=== PATIENT | male | born 2000 | race Caucasian/White ===

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

== ENCOUNTER 2022-07-20 13:40 | Emergency (ER) | payer MEDICAID, SELFPAY ==
[2022-07-20 13:44] VITALS: BP 120/77; PULSE 62; RESP 17; TEMP 36.6; O2SAT 100; BMI 24.1
--- NOTE | 2022-07-20 14:08 | US_ITS ---
STUDY: SCROTUM ULTRASOUND REASON FOR EXAM: Male, 21 years old. Testicular pain TECHNIQUE: Ultrasound evaluation of the scrotum was performed with color Doppler and static jacob-scale imaging. With Doppler. COMPARISON: None. FINDINGS: RIGHT TESTICLE INTRATESTICULAR: There is a normal size of the right testicle. The right testicle measures 4.1 x 3.5 x 2.2 cm. There is a homogenous echotexture. There is normal arterial and normal venous vascularity. There is no demonstrated right testicular mass or cyst. EXTRATESTICULAR: The epididymis is enlarged. The epididymis head measures 0.8 x 0.9 x 0.9 cm. There is normal vascularity of the epididymis. There is a 2 mm well-defined cystic structure within the epididymis, without internal echoes, consistent with an epididymal cyst. There is a small hydrocele. There is no demonstrated varicocele. There is no demonstrated extratesticular mass or cyst. LEFT TESTICLE INTRATESTICULAR: There is a normal size of the left testicle. The left testicle measures 4.0 x 3.3 x 2.2 cm. There is a homogenous echotexture. There is normal arterial and normal venous vascularity. There is no demonstrated left testicular mass or cyst. EXTRATESTICULAR: The epididymis is enlarged. The epididymis head measures 1 x 0.8 x 0.7 cm. There is normal vascularity of the epididymis. There is a 3 mm well-defined cystic structure within the epididymis, without internal echoes, consistent with an epididymal cyst. There is a small hydrocele. There are small extratesticular veins consistent with a varicocele. There is no demonstrated extratesticular mass or cyst. US/Testicular with Arterial Flow IMPRESSION: No visualized torsion. No visualized testicular mass. Small left varicocele. Bilateral mildly prominent appearing epididymis with minimal increased vascularity suggesting possible mild epididymitis. Small bilateral hydroceles. Small benign-appearing epididymal cysts. Electronically Signed: Mile Arambula MD at 15:48 EST ,
--- NOTE | 2022-07-20 14:08 | CT_ITS ---
STUDY: CT ABDOMEN AND PELVIS WITHOUT CONTRAST REASON FOR EXAM: Male, 21 years old. Flank pain RADIATION DOSAGE (If Supplied By Facility): CTDIvol = ( 6.31 ) mGy, DLP = ( 340.77 ) mGycm TECHNIQUE: Transaxial images were obtained from the dome of the diaphragm to the symphysis pubis without oral contrast, and without intravenous contrast. Sagittal and coronal images were reconstructed. Individualized dose optimization techniques were used for this CT. COMPARISON: None. FINDINGS: The visualized lung bases are unremarkable. The visualized portions of the heart are within normal limits. Normal liver. Normal gallbladder and extrahepatic biliary system. Normal spleen. Normal pancreas. Normal bilateral adrenal glands. Normal right kidney. Normal left kidney. Normal visualized stomach. There is mild distention of the distal small bowel. There is a gassy distended appearance of the transverse colon with wall thickening suggested of the ascending colon the lack of the noncontrasted nature of this study. Image 92 series 2. Otherwise there is moderate stool in the colon. The appendix is not seen with certainty. Normal abdominal aorta. Normal inferior vena cava. There are small mesenteric lymph nodes. Normal urinary bladder. Normal visualized prostate gland. Normal abdominal wall. Normal osseous structures. CT/Abdomen/Pelvis without Cont IMPRESSION: There is abnormal thick walled appearance of the ascending colon with a gassy distended appearance of the transverse colon with mild wall thickening. There are small mesenteric lymph nodes and a small amount of free fluid within the right-sided paracolic gutter. Findings are suspicious for colitis. Recommend correlation with bowel symptoms. The appendix is not seen with certainty. It may be partially visualized in June coronal views. No visualized renal ureteral or bladder calculi or hydronephrosis. Electronically Signed: Mile Arambula MD at 15:39 EST ,
--- NOTE | 2022-07-20 14:10 | EDS_ITS ---
HPI History of Present Illness Chief Complaint: Male Pain/Injury Informant: patient Narrative Narrative: Patient is a 21-year-old male presenting with testicular pain. The pain is bilaterally. He states he woke up at 2 AM and describes as excruciating. He states that the pain has come in waves since. He also feels constipated has pressure and discomfort in suprapubic region. He has had vomiting with the pain. He did not take anything for pain prior to arrival. He tried to go to work and then came here. He states he was last screened for STDs a month ago and everything was normal. He denies any new partners since then. Patient denies difficulty urinating. Nuys any swelling or redness to his testicles. Denies any diarrhea or abnormal bowel movements however this morning he felt like he needed to go but nothing happened. He had a normal bowel movement yesterday. Denies any blood in his stool. Denies any history or family history of inflammatory bowel disease such as ulcerative colitis or Crohn's disease. No other complaints at this time. PFSH PFSH Home Medications levofloxacin 500 mg tablet 500 mg PO DAILY #10 tabs 07/20/22 [Rx Last Taken Unkn own] metronidazole 500 mg tablet 500 mg PO Q8H 10 days #30 tabs 07/20/22 [Rx Last Taken Unknown] Allergy/AdvReac Type Severity Reaction Status Date / Time No Known Allergies Allergy Verified 07/20/22 13:43 Social History Smoking Status: Current every day smoker tobacco type: e-cigarettes ROS ROS ED Constitutional Constitutional ED: Denies chills or fever(s) Eyes Eyes: Denies change in vision ENT ENT ED: Denies sore throat Cardiovascular Cardiovascular: Denies chest pain or palpitations Respiratory/Chest Respiratory/Chest: Denies cough Gastrointestinal Gastrointestinal: Reports abdominal pain, nausea and vomiting Genitourinary Genitourinary ED: Reports other Details: Testicular pain ; Denies dysuria or hematuria Musculoskeletal Musculoskeletal: Denies back pain or myalgias Integumentary Denies rash Neurologic Neurologic: Denies headache(s) or weakness Psychiatric Psychiatric: Denies anxiety Hematologic/Lymphatic Hematologic/Lymphatic: Denies easy bleeding or easy bruising EXAM Physical Exam Const Vital Signs: 07/20/22 13:44 Temperature 97.9 F Temperature Source Temporal Pulse Rate 62 Respiratory Rate 17 Blood Pressure 120/77 Blood Pressure Mean 91 Pulse Ox 100 Oxygen Delivery Method Room Air Positive well nourished and well developed General Appearance ED: well developed and NAD HEENT Reports moist mucous membranes normocephalic and atraumatic Eyes PERRL and EOMs intact bilaterally Neck supple Resp normal respiratory effort and clear to auscultation bilaterally Cardio regular rate, regular rhythm and no murmurs GI non-tender and non-distended Auscultation: normoactive bowel sounds Narrative: With flare stitcher. Circumcised, normal external genitalia. Normal cremasteric reflex bilaterally. No testicular edema or tenderness palpation on exam. No penile discharge or lesions appreciated. Extremity normal to inspection Neuro oriented x3 and moves all extremities Psych mental status grossly normal Skin Lesions: no lesions Rashes: no rashes MDM MDM MDM Narrative Medical decision making narrative: Patient is evaluated for testicular pain. He also some suprapubic abdominal discomfort. No other GI or symptoms. Pain is going on for 12 hours. Physical exam is pretty benign. He denies any abdominal tenderness but does point to suprapubic region as his area of discomfort. Lower suspicion for testicular torsion based on physical exam however will obtain an ultrasound for further evaluation of this. Differential also includes epididymitis but again lower suspicion given the physical exam. He describes a colicky pain and I question if he could have a kidney stone that is radiating into his groin. CT of the abdomen and pelvis also obtained. This is negative for kidney stones but does show some free fluid in the paracolic gutter, small mesenteric lymph nodes and thickening of the ascending colon with a gassy distention appearance of the transverse colon and mild wall thickening. There is not complete visualization of the appendix however on exam patient does not of any tenderness in his right lower quadrant. As his white blood cell count is normal of the lower suspicion for acute appendicitis with these factors. Patient denies any history of ulcerative colitis or Crohn's disease however the CT scan is concerning for possible inflammatory bowel disease. Patient will be placed on antibiotics to cover colitis as well as epididymitis. Given his age he will be treated also with a dose of IM Rocephin and urine gonorrhea chlamydia sent off. Patient is counseled on the importance of following up with GI as well as his primary care doctor. He verbalizes agreement nursing of this plan. On repeat exam patient is resting comfortably and feels well with no pain. Lab Data Attestation: I reviewed the patient's lab results. Labs: Laboratory Results - last 24 hr 07/20/22 07/20/22 07/20/22 14:15 14:15 14:38 WBC 7.1 RBC 4.78 Hgb 14.1 Hct 42.7 MCV 89.3 MCH 29.5 MCHC 33.0 RDW Std Deviation 39.8 RDW Coeff of Delores 12.1 Plt Count 247 MPV 10.2 Immature Gran % (Auto) 0.100 Neut % (Auto) 65.4 Lymph % (Auto) 21.9 Towns % (Auto) 10.2 H Eos % (Auto) 2.1 Baso % (Auto) 0.3 Absolute Neuts (auto) 4.6 Absolute Lymphs (auto) 1.55 Nucleated RBC % 0 Sodium 140 Potassium 4.3 Chloride 105 Carbon Dioxide 32.0 Anion Gap 3 L BUN 8 Creatinine 0.91 Estim Creat Clear Calc 130.57 Est GFR (MDRD) Af Amer 138 Est GFR (MDRD) Non-Af 114 BUN/Creatinine Ratio 8.8 L Glucose 116 H Calcium 9.7 Total Bilirubin 0.40 AST 13 L ALT 26 Alkaline Phosphatase 89 Total Protein 7.5 Albumin 4.5 Globulin 3.0 Albumin/Globulin Ratio 1.5 Urine Color Straw Urine Clarity Clear Urine pH 8.0 Ur Specific [place] 1.015 Urine Protein Negative Urine Glucose (UA) Normal Urine Ketones Negative Urine Occult Blood Negative Urine Nitrite Negative Urine Bilirubin Negative Urine Urobilinogen Normal Ur Leukocyte Esterase Negative Radiography Diagnostic Testing: Clinical Impression(s) from Imaging Studies Abdomen/Pelvis CT 07/20/22 14:08 IMPRESSION: There is abnormal thick walled appearance of the ascending colon with a gassy distended appearance of the transverse colon with mild wall thickening. There are small mesenteric lymph nodes and a small amount of free fluid within the right-sided paracolic gutter. Findings are suspicious for colitis. Recommend correlation with bowel symptoms. The appendix is not seen with certainty. It may be partially visualized in June coronal views. No visualized renal ureteral or bladder calculi or hydronephrosis. Electronically Signed: Mile Arambula MD at 15:39 EST , Testicular Ultrasound 07/20/22 14:08 IMPRESSION: No visualized torsion. No visualized testicular mass. Small left varicocele. Bilateral mildly prominent appearing epididymis with minimal increased vascularity suggesting possible mild epididymitis. Small bilateral hydroceles. Small benign-appearing epididymal cysts. Electronically Signed: Mile Arambula MD at 15:48 EST Reading Location ID and State: [facility] / [place] Tel , Service support , Discharge Plan Triage Chief Complaint: Male Pain/Injury ED Provider: Neda Contreras Dx/Rx/DC Orders Clinical Impression: Acute epididymitis, Colitis Instructions: ED Understanding Colitis, ED Epididymitis Prescriptions: New levofloxacin 500 mg tablet 500 mg PO DAILY Qty: 10 0RF metronidazole 500 mg tablet 500 mg PO Q8H 10 Days Qty: 30 0RF Primary Care Provider: Prakash Smith Referrals: Prakash Smith DO [Primary Care Provider] - FriendBennett DO [Med Staff - Active Staff] - As soon as possible Activity Restrictions/Additional Instructions: Your lab work was normal however your ultrasound showed possible early epididymitis and your CT did show some inflammation of the lower colon which could be consistent with colitis. I recommend that you follow-up with GI doctor as this colitis could be infection or an autoimmune condition such as inflammatory bowel disease. Please follow-up with your primary care doctor within 1 week. Return if you have worsening symptoms. In the meantime alter liborio ibuprofen and Tylenol for pain. Recommend wearing tight underwear for testicular support which should help with your pain. Disposition Disposition: Home, Self Care
[2022-07-20 14:28] LABS: Absolute Lymphocyte Count 1.55 X10^3/uL (0.83-4.51); Absolute Neutrophil Count 4.6 X10^3/uL (2.0-7.7); Basophil# 0.02 X10^3/uL; Basophil% 0.3 % (0-1); Eosinophil# 0.15 X10^3/uL; Eosinophils% 2.1 % (0-5); Hematocrit 42.7 % (40-54); Hemoglobin 14.1 g/dL (13.0-16.5); Lymphocyte # 1.55 X10^3/ul (0.83-4.51); Lymphocyte % 21.9 % (19-41); Mean Corpuscular Hgb 29.5 pg (27.0-32.0); Mean Corpuscular Volume 89.3 fL (80-94); Mean Platelet Vol. 10.2 fl (6.2-12.0); Monocyte# 0.72 X10^3/uL; Monocyte% 10.2 % (0-10); NRBC Flagged by Analyzer 0 % (0-5); Neutrophil # 4.63 X10^3/uL (2.7-7.7); Neutrophil % 65.4 % (47-70); Platelet Count 247 K/mm3 (150-450); RBC Distribution Width CV 12.1 % (11.6-14.6); RBC Distribution Width SD 39.8 fl (35.1-43.9); Red Blood Count 4.78 M/mm3 (4.6-6.2); White Blood Count 7.1 K/mm3 (4.4-11.0)
[2022-07-20] MEDS: 0.9% Normal Saline 1,000 ML 999 ML IV (14:29)
[2022-07-20] MEDS: Ketorolac 15 MG/ML Vial IV (14:29)
[2022-07-20 14:41] LABS: ALB/GLOB Ratio 1.5 RATIO (0.9-2.4); AST(SGOT) 13 U/L (15-37); Alanine Aminotransfer ALT/SGPT 26 U/L (16-61); Albumin, Serum 4.5 g/dL (3.2-5.0); Alkaline Phosphatase 89 U/L (45-117); Anion Gap 3 (5-15); BUN 8 mg/dL (7-18); BUN/Creat Ratio 8.8 RATIO (10-20); Calcium,Total 9.7 mg/dL (8.5-10.1); Chloride 105 mmol/L (98-107); Creatinine, Serum 0.91 mg/dL (0.70-1.30); EST Glomerular Filtration Rate 114 mL/min (>60); Est Glom Filt Rate - Afr Amer 138 mL/min (>60); Estimated Creatinine Clearance 130.57 ml/min; Glucose 116 mg/dL (74-106); Potassium 4.3 mmol/L (3.5-5.1); Protein, Total 7.5 g/dL (6.4-8.2); Sodium Level 140 mmol/L (136-145)
[2022-07-20 14:43] LABS: Bacteria 0 SEEN /hpf (None Seen); Mucous, Urine 0 SEEN /hpf (<or=2+); Red Blood Cells-Urine 0 SEEN /hpf (0-5); Squamous Epithelial Cells - UA 0 SEEN /hpf (0-5); White Blood Cells 0 SEEN /hpf (0-5)
[2022-07-20 14:46] LABS: Color, Urine Straw (Yellow); Glucose, Dipstick Normal (Normal); Ketone-Dipstick Negative (Negative); Leukocyte Esterase-Dipstick Negative /ul (Negative); Nitrite-Dipstick Negative (Negative); Occult Blood-Urine Negative /ul (Negative); Protein-Dipstick Negative (Negative); Specific Gravity, Urine 1.015 (1.002-1.030); Urine Bilirubin Dipstick Negative (Negative); Urine Clarity Clear (Clear); Urine Urobilinogen Normal (Normal)
[2022-07-20] MEDS: Ceftriaxone 500 MG Vial IM (16:42)
[2022-07-20] MEDS: levoFLOXacin 500 MG Tablet PO (16:42)
[2022-07-20 18:07] LABS: Chlamydia Trachomatis by PCR Negative (Negative); Neisserai gonorrhoeae by PCR Negative (Negative); Probe Check PASS; Sample Adequacy Control PASS; Specimen Processing Control PASS
== END 2022-07-20 16:48 | disposition home or self-care (01) ==
PROVIDERS: Emergency Provider Emergency Medicine; PCP Student in an Organized Health Care Education/Training Program; Visit Provider Emergency Medicine
DX: K52.9 Noninfective gastroenteritis and colitis, unspecified (principal); N50.819 Testicular pain, unspecified; N45.1 Epididymitis; F17.290 Nicotine dependence, other tobacco product, uncomplicated; R10.9 Unspecified abdominal pain; R11.2 Nausea with vomiting, unspecified; Z11.3 Encounter for screening for infections with a predominantly sexual mode of transmission
CPT/HCPCS: 74176; 76870; 80053; 81001; 85025; 87491; 87591; 93976; 96361; 96372; 96374; 99284; J7030; A4216

== ENCOUNTER 2023-11-07 09:07 | Emergency (ER) | payer MEDICAID, SELFPAY ==
[2023-11-07 09:08] VITALS: BP 147/76; PULSE 78; RESP 16; TEMP 36.6; O2SAT 100; BMI 23.7
[2023-11-07] MEDS: Penicillin Vk 250 MG Tablet 500 MG PO (10:03)
--- NOTE | 2023-11-07 10:04 | EDS_ITS ---
HPI History of Present Illness Chief Complaint: Dental Informant: patient Onset/Context/Timing Onset: Today Context: Gradual Onset Timing: Continuous Current Severity: Moderate Maximum Severity: Moderate Relieved by: NSAIDs Associated Symptoms Assocated Symptom - Dental: cold sensitivity; Negative for fever, jaw swelling or face swelling Narrative Narrative: 22-year-old male no seen past medical history. Right upper front premolar has a history of being decayed. He is having severe pain since 6 AM this morning. No recent trauma. No fever. No facial swelling. Prior similar symptoms: Yes Recent Illness/Hospitalization: No PFSH PFSH Medical History Acute epididymitis Colitis Home Medications levofloxacin 500 mg tablet 500 mg PO DAILY #10 tabs 07/20/22 [Rx Last Taken Unknown] metronidazole 500 mg tablet 500 mg PO Q8H 10 days #30 tabs 07/20/22 [Rx Last Taken Unknown] penicillin V potassium 500 mg tablet 500 mg PO 4X/DAY #40 tabs 11/07/23 [Rx Last Taken Unknown] Allergy/AdvReac Type Severity Reaction Status Date / Time No Known Allergies Allergy Verified 11/07/23 09:08 Social History Smoking Status: Current every day smoker tobacco type: e-cigarettes alcohol intake: never ROS ROS ED ROS Narrative No recent illness. Review of Systems ROS Unobtainable: Denies due to encephalopathy Constitutional Constitutional ED: Denies chills or fever(s) Eyes Eyes: Denies blurry vision ENT ENT ED: Denies ear pain Cardiovascular Cardiovascular: Denies chest pain or palpitations Respiratory/Chest Respiratory/Chest: Denies cough or dyspnea Gastrointestinal Gastrointestinal: Denies abdominal pain Genitourinary Genitourinary ED: Denies dysuria or hematuria Musculoskeletal Musculoskeletal: Denies arthralgias, back pain, myalgias or neck pain Integumentary Denies abscess or Abrasions Neurologic Neurologic: Denies headache(s) Psychiatric Psychiatric: Denies anxiety or depression Endocrine Endocrinology: Denies cold intolerance, heat intolerance, polydipsia or polyphagia Hematologic/Lymphatic Hematologic/Lymphatic: Denies easy bleeding, easy bruising or lymphadenopathy Allergic/Immunologic Allergic/Immunologic ED: Denies mouth swelling, tongue swelling or urticaria EXAM Physical Exam Narrative Exam Narrative: Well-appearing 22-year-old male. Vital signs are stable and afebrile. His right upper molar second the last is decayed. Cracked. There is a large portion missing. Large cavity. He is get some gingival swelling around it. No fluctuance. No drainable abscess. Tender to palpation. He can open and close his mouth any difficulty. No tongue or posterior pharynx swelling. No floor of his mouth swelling. Neck nontender. No lymphadenopathy. Lungs clear. Heart regular rhythm no murmur. Abdomen soft nontender. Moving all 4 extremities. Awake and alert. Const Vital Signs: 11/07/23 09:08 Temperature 97.8 F Temperature Source Temporal Pulse Rate 78 Respiratory Rate 16 Blood Pressure 147/76 H Blood Pressure Mean 99 Pulse Ox 100 Oxygen Delivery Method Room Air Positive well nourished and well developed; Negative for obese, cachectic, contractures or unkempt General Appearance ED: well developed; Negative for unkempt, cachectic or contractures Nutritional Appearance: Negative for cachectic or obese HEENT HEENT Narrative: Right upper molar. Decayed. Cracked. Tender. Gingival swelling. tenderness; Negative for trauma Mouth ED: No oral and palatal mucosa normal, Yes lips normal, Yes tongue normal and Yes salivary gland normal Mouth: No oral and palatal mucosa normal, lips normal, tongue normal and salivary gland normal Teeth and Gingiva: abnormal tooth and associated gingiva Throat: posterior oropharynx normal Eyes PERRL and EOMs intact bilaterally General Eye ED: Negative for pale conjunctiva or scleral icterus Neck no lymphadenopathy, supple and no JVD General: normal visual inspection; Negative for anterior neck swelling, tenderness or submandibular swelling Lymph Lymphatic: no lymphadenopathy noted; Negative for lymphadenopathy Chest Wall inspection of chest normal and palpation of chest normal Chest: Negative for other Resp normal respiratory effort, no retractions and clear to auscultation bilaterally Effort and Inspection: Negative for other Cardio regular rate, regular rhythm, S1 normal heart sound, S2 normal heart sound and no murmurs Jugular Venous Distention: Negative for other Palpation: Negative for palpable S3 or palpable S4 Rate: Negative for bradycardia or tachycardic Rhythm: Negative for abnormal rhythm GI normal to inspection, nondistended, normoactive bowel sounds, non-tender, non- distended and no masses Inspection: Negative for other Palpation: soft Bladder / Kidney Exam: No other Back/Spine no CVA tenderness General Back: Negative for CVA tenderness Cervical Spine: Negative for other Thoracic Spine / Upper Back: Negative for thoracic spinal tenderness, paraspinal muscle tenderness or paraspinal muscle spasm Extremity normal to inspection and no joint enlargement General Extremety ED: Negative for edema General Extremity: Negative for edema Neuro oriented x3, CN's II-XII intact bilaterally, moves all extremities and no focal motor deficits Sensorium / Orientation: alert, oriented to person, oriented to place and oriented to time Gait (Neuro): normal gait Motor Exam: strength 5/5 throughout Psych mental status grossly normal Appearance: Negative for unkempt Attitude: No agitated and No other Mood & Affect: Negative for depressed or anxious Skin no rashes or lesions noted and no wounds General Skin Exam: Negative for other Image ED - URI/Dental Diagram: 1. Right upper second last premolar decayed. Large cavity. Mild gingival swelling. No palpable abscess. No fluctuance. MDM MDM MDM Narrative Medical decision making narrative: 22-year-old male with severely decayed and infected right upper molar. Started on Pen-Vee K 500 4 times daily for 10 days. Tylenol Motrin for pain. Locally anesthetized with a dental block. Discharged as a dentist and follow-up with tomorrow. Repeat exam at 10:15 AM patient's had significant relief with a dental block. He will be discharged to home. History & Record Review Discussion w/independent historian: Patient Procedures Other Procedures Procedure(s): Right second to last, upper molar local dental block. With bupivacaine and 1% lidocaine about total of 5 cc. Patient tolerated exceedingly well within minutes he had significant relief. Discharge Plan Triage Chief Complaint: Dental ED Provider: Robert Merrill Dx/Rx/DC Orders Clinical Impression: Dental cavity, Pain, dental, Dental infection Instructions: ED Dental Pain, ED Dental Abscess Prescriptions: New penicillin V potassium 500 mg tablet 500 mg PO 4X/DAY Qty: 40 0RF No Action levofloxacin 500 mg tablet 500 mg PO DAILY Qty: 10 0RF metronidazole 500 mg tablet 500 mg PO Q8H 10 Days Qty: 30 0RF Primary Care Provider: Prakash Smith Referrals: Prakash Smith DO [Primary Care Provider] - As Needed Activity Restrictions/Additional Instructions: The numbing medication should last several hours to potentially a day. Ice to your jaw to decrease pain. Motrin and Tylenol for pain and swelling. The antibiotic penicillin 4 times a day. Call and follow-up with your dentist as soon as possible. Disposition Disposition: Home, Self Care
== END 2023-11-07 10:35 | disposition home or self-care (01) ==
PROVIDERS: Emergency Provider Emergency Medicine; PCP Student in an Organized Health Care Education/Training Program; Visit Provider Emergency Medicine
DX: K04.7 Periapical abscess without sinus (principal); K02.9 Dental caries, unspecified; F17.290 Nicotine dependence, other tobacco product, uncomplicated
CPT/HCPCS: 99282